=== PATIENT | female | born 1950 | race American Indian/Alaskan Native ===

== ENCOUNTER → 2019-02-09 | Outpatient (CLI) | payer MEDICARE ==
--- NOTE | 2019-02-09 11:53 | Diagnostic Imaging Report ---
Exam: KUB - 2 views Indication: Renal calculus Comparison: None Findings: No radiographically apparent renal calculi. Left internal nephroureteral stent in expected position. Not certain bowel gas pattern. The osseous structures appear unremarkable. Phlebolith in the left pelvis. Impression: No radiographic apparent renal calculi. Left internal nephroureteral stent in expected position. Signed by: Bruna Ibanez MD on 02/09/2019 11:49 AM
== END ==
LOC: RAD 10:20
PROVIDERS: ATTEND Urology
DX: N20.0 Calculus of kidney (principal)
CPT/HCPCS: 74018

== ENCOUNTER → 2019-02-21 | Outpatient (CLI) | payer MEDICARE ==
--- NOTE | 2019-02-21 09:17 | Diagnostic Imaging Report ---
EXAM: Renal Ultrasound INDICATION: ^[id number] ^[id number] ^CALCULUS OF KIDNEY COMPARISON: None TECHNIQUE: Transverse and longitudinal images of the kidneys and bladder were obtained. FINDINGS: Right Kidney: Length: 9.6 cm Appearance: Normal echogenicity. Collecting system: No hydronephrosis Stones: None Cyst/Mass: None Left Kidney: Length: 9.5 cm Appearance: Normal echogenicity. Collecting system: No hydronephrosis Stones: None Cyst/Mass: None Bladder: No mass or calculi. Bilateral ureteral jets visualized. Prevoid volume estimate of 53.1 cc. IMPRESSION: No renal calculi or hydronephrosis. Signed by: Bruna Ibanez MD on 02/21/2019 9:14 AM
== END ==
LOC: US 08:23
PROVIDERS: ATTEND Urology
DX: N20.0 Calculus of kidney (principal)
CPT/HCPCS: 76770